=== PATIENT | female | born 1995 | race Native Hawaiian/Other Pacific Islander ===

== ENCOUNTER 2016-12-25 10:51 | Outpatient (CLI) | payer OTHER | END 2016-12-25 10:57 | disposition short-term general hospital (02) | LOC: AMB 10:51 | DX: R10.2 Pelvic and perineal pain (principal); M79.661 Pain in right lower leg; S81.811A Laceration without foreign body, right lower leg, initial encounter; V49.88XA Car occupant (driver) (passenger) injured in other specified transport accidents, initial encounter; Y92.414 Local residential or business street as the place of occurrence of the external cause | CPT/HCPCS: A0425; A0427 ==